=== PATIENT | female | born 1990 | race Caucasian/White ===

== ENCOUNTER 2024-12-01 17:45 | Emergency (ER) | payer OTHER, SELFPAY ==
[2024-12-01 17:52] VITALS: BP 144/84; PULSE 75; TEMP 36.8; O2SAT 97; BMI 52.3
--- OUTSIDE RECORDS SUMMARY | 2024-12-01 17:54 | XMS_ITS | Encounter Summary ---
Author Organization [facility] Address [address] [place] [address] Care Team Providers Care Mechanical Car Checker Name Role Phone Lily Grant MD, IBCLC Primary Care Provid er Reason for Referral * Consultation (Routine) - Authorized Specialty Diagnoses / Procedures Referred By Desi villagran Referred To Contact Nephrology Diagnoses Nephrocalcinosis Hypercalcinuria Procedures [facility]OUTPATIENT [facility] MDM 60 MINUTES Lily Grant MD, IBCLC [address] [place] [address] Phone: tel: fax: Waqas Cabrera MD [address] [facility] [place] [address] Phone: tel: fax: Referral ID Status Reason Start Date Expiration Date Visits Requested Visits Authorized [id number] Authorized Specialty Services Required 11/29/2024 05/28/2025 1 1 * Consultation (Routine) - Authorized Specialty Diagnoses / Procedures Referred By Desi villagran Referred To Contact Urology Diagnoses Nephrocalcinosis Hypercalcinuria Procedures [facility]OUTPATIENT [facility] MDM 60 MINUTES Lily Grant MD, IBCLC [address] [place] [address] Phone: tel: fax: Dacia Dan MD [address] [place] [address] Phone: tel: fax: Referral ID Status Reason Start Date Expiration Date Visits Requested Visits Authorized [id number] Authorized Specialty Services Required 11/29/2024 05/28/2025 1 1 Encounter Details Date Type Department Care Team (Latest Contact Info) Description 10/17/2024 Results Follow-Up [facility] [address] [place] [phone] Lily Grant MD, IBCLC [address] [place] [address] Comprehensive metabolic panel, Lipid panel, TSH, Additional followed-up results: 4 Social History Tobacco Use Types Packs/Day Years Used Date Smoking Tobacco: Never Smokeless Tobacco: Never AUDIT-C Answer Date Recorded Q1: How often do you have a drink containing alc ohol? Monthly or less 05/25/2024 Q2: How many drinks containi ng alcohol do you have on a typical day when you are drinking? 1 or 2 05/25/2024 Q3: How often do you have si x or more drinks on one occasion? Never 05/25/2024 PHQ-2 Answer Date Recorded Patient Health Questionnaire-2 Score 0 05/25/2024 Comments No Sex and Gender Information Value Date Recorded Sex Assigned at Not on file Legal Sex Female 6:50 PM EDT Gender Identity Not on file Sexual Orientation Not on file documented as of this encounter Plan of Treatment Upcoming Encounters Date Type Department Care Team (Late st Contact Info) Description 12/05/2024 8:40 AM EDT Office Visit [facility] [address] [place] [phone] Lily Grant MD, IBCLC [address] [place] [address] 05/31/2025 1:30 PM EST Office Visit [facility] [address] [place] [id number] Carlito Montelongo DO [address] [place] [address] Scheduled Orders Name Type Priority Associated Diagnoses Orde r Schedule Oxalate, urine, 24 hour Lab Routine Nephrocalcinosis Expected: 10/21/2024, Expires: 10/21/2025 Phosphorus, urine, timed Lab Routine Nephrocalcinosis Expected: 10/21/2024 (Approximate), Expires: 10/21/2025 Scheduled Referrals Name Type Priority Associated Diagnoses Order Schedule Ambulatory referral to Urology Outpatient Referral Routine Nephrocalcinosis Hypercalcinuria Expected: 11/29/2024 (Approximate), Expires: 06/01/2025 Ambulatory referral to Nephrology Outpatient Referral Routine Nephrocalcinosis Hypercalcinuria Expected: 11/29/2024 (Approximate), Expires: 06/01/2025 documented as of this encounter Procedures Procedure Name Priority Date/Time Associated Diagnosis Comments CALCIUM, 24 HOUR URINE (W/O CREATININE) Routine 11/23/2024 10:34 AM EDT Nephrocalcinosis CREATININE, 24 HOUR URINE Routine 11/23/2024 10:34 AM EDT Nephrocalcinosis CITRIC ACID, 24 HOUR URINE W/O CREATININE Routine 11/23/2024 10:34 AM EDT Nephrocalcinosis documented in this encounter Results * Citrate, urine, 24 hour (11/23/2024 10:34 AM EDT) Citric Acid, Urine 450 Undefined mg/L [facility] Comment:Total Volume: 1150 m L Citric Acid, U, 24hr 518 320 - 1,240 mg/24 hr [facility] Urine Urine specimen obtained by clean catch procedure / Unknown 11/23/2024 10:34 AM EDT 11/23/2024 Narrative [facility] - 11/29/2024 8:07 AM EDT Test(s) [id number] Acid, Urine was developed and its performance characteristics determined by [facility]. It has not been cleared or approved by the Food and Drug Administration. Performed at: [address] [id number] Digital Media Intern: Qi Dale MD, Phone: [phone] Lily Grant MD, IBCLC LAB URINE ORDERABLES Final Result Performing Organization Address City/[facility]/ZIP Co de Phone Number [facility] * Creatinine, urine, 24 hour (11/23/2024 10:34 AM EDT) Creat Ur 124.9 Not Estab. mg/dL [facility] Comment:Total Volume: 1150 m L CREATININE, UR 24HR 1,436 800 - 1,800 mg/24 hr [facility] Urine Urine specimen obtained by clean catch procedure / Unknown 11/23/2024 10:34 AM EDT 11/23/2024 Narrative [facility] - 11/29/2024 8:07 AM EDT Performed at: - [address] [id number] Digital Media Intern: Osvaldo Nathan PhD, Phone: [phone] Lily Grant MD, IBCLC LAB URINE ORDERABLES Final Result Performing Organization Address [facility] Co de Phone Number [facility] * Calcium, urine, 24 hour (11/23/2024 10:34 AM EDT) CALCIUM, URINE 16.3 Not Estab. mg/dL [facility] Comment:Total Volume: 1150 m L CALCIUM, URINE 24HR 187 0 - 320 mg/24 hr [facility] Urine Urine specimen obtained by clean catch procedure / Unknown 11/23/2024 10:34 AM EDT 11/23/2024 Narrative [facility] - 11/29/2024 8:07 AM EDT Performed at: - [address] [id number] Digital Media Intern: Osvaldo Nathan PhD, Phone: [phone] us Lily Grant MD, IBCLC LAB URINE ORDERABLES Final Result [facility] documented in this encounter Visit Diagnoses Diagnosis Nephrocalcinosis- Primary Other disorder of calcium metabolism Hypercalcinuria Unspecified disorders of calcium metabolism documented in this encounter Care Teams Mechanical Car Checker Relationship Specialty Start Date End Date Lily Grant MD, IBCLC [address] [place] [address] PCP - General Family Medicine 05/20/24 documented as of this encounter
--- OUTSIDE RECORDS SUMMARY | 2024-12-01 17:54 | XMS_ITS | Patient Health Record ---
Author Organization [facility] es Address [address] [place] [address] Care Team Providers Care Truck Driver Teamster Name Role Phone Jordan Levy Primary Care Provider [phone] Allergies Allergen (clinical drug ingredient) Drug/Non Drug Allergy documented on EMR Reaction Allergy Type Onset Date Status amoxicillin Amoxicillin hives Drug Allergy Act ngoc Reason For Referral No Information Medications Medication SIG (Take, Route, Frequency, Duration) Notes Start Date End Date Status Triamcinolone Acetonide 0.5 % 1 application sparingly to affected area Externally Twice a day; Duration: 1 month 03/13/2011 Not-Taking buPROPion HCl 150 MG 1 tablet every morn ing Orally Once a day; Duration: 30 day(s) 11/26/2011 Not-Taking buPROPion HCl 100 MG 1 tablet every morn ing Orally Once a day; Duration: 30 day(s) 10/29/2011 Not-Taking Pristiq 50 MG 1 tablet Orally Once a day; Duration: 30 day(s) 04/24/2011 Not-Taking Social History Depression Screening (PHQ-2): Question Answer Notes Little interest or pleasure in doing things No Feeling down depressed or hopeless No Section Notes: Apr 2011: denies tobacco, ETOH, or illegal drug use. Apr 2011: denies tobacco, ETOH, or illegal drug use. Apr 2011: denies tobacco, ETOH, or illegal drug use. rare ETOH Apr 2011: denies tobacco, ETOH, or illegal drug use. Apr 2011: denies tobacco, ETOH, or illegal drug use. Apr 2011: denies tobacco, ETOH, or illegal drug use. Apr 2011: denies tobacco, ETOH, or illegal drug use. Plan Of Treatment No Information Medical (General) History Medical History History ICD Code JEHOVA WITNESS NO BLOOD motion sickness UTI
--- OUTSIDE RECORDS SUMMARY | 2024-12-01 17:54 | XMS_ITS | Encounter Summary ---
Author Organization [facility] Address [address] [place] [address] Phone Care Team Providers Care Set Up Inspector Name Role Phone Unavailable Primary Care Provider Unavailabl e Encounter Details Date Type Department Care Team (Late st Contact Info) Description 06/17/2022 Orders Only DO [facility] [phone] Conversion, Onbase Social History Tobacco Use Types Packs/Day Years Used Date Smoking Tobacco: Never Assessed Comments Unknown Sex and Gender Information Value Date Recorded Sex Assigned at Not on file Legal Sex Female 3:55 AM EDT Gender Identity Not on file Sexual Orientation Not on file documented as of this encounter Plan of Treatment Scheduled Orders Name Type Priority Associated Diagnoses Orde r Schedule OUTSIDE LAB SCAN Lab Ordered: 06/17/2022 documented as of this encounter Visit Diagnoses Not on filedocumented in this encounter
--- OUTSIDE RECORDS SUMMARY | 2024-12-01 17:54 | XMS_ITS | Clinical Summary ---
Author Organization [facility] Address [address] [place] [address] Phone Care Team Providers Care Fuel House Attendant Name Role Phone Unavailable Primary Care Provider Unavailabl e Social History Tobacco Use Types Packs/Day Years Used Date Smoking Tobacco: Never Assessed Comments Unknown Sex and Gender Information Value Date Recorded Sex Assigned at Not on file Legal Sex Female 3:55 AM EDT Gender Identity Not on file Sexual Orientation Not on file Last Filed Vital Signs Vital Sign Reading Time Taken Comments Blood Pressure 130/90 08/25/2022 12:00 AM EDT Pulse - - Temperature - - Respiratory Rate - - Oxygen Saturation - - Inhaled Oxygen Concentration - - Weight 135 kg (296 lb 9.6 oz) 08/25/2022 12:00 A M EDT Height 157.5 cm (5' 2 ) 08/25/2022 12:00 AM EDT Body Mass Index 54.25 08/25/2022 12:00 AM EDT Plan of Treatment Health Maintenance Due Date Last Done Comments HIV Screening 1989 Lipid Panel 1989 Yearly Adult Physical 1989 MMR Vaccines (1 of 1 - Stand leeanne series) 1990 Hepatitis C Screening 12/10/2007 Hepatitis B Vaccines (1 of 3 - 19+ 3-dose series) 2008 Cervical Cancer Screening 2010 HPV/Cotest 2010 Pap Smear 2010 DTaP/Tdap/Td Vaccines (1 - Tdap) 12/10/2011 HPV Vaccines (1 - 3-dose sta ndard series) 2016 COVID-19 Vaccine (1 - 2023-2 5 season) 2023 Influenza Vaccine (#1) 2024 Zoster Vaccines (1 of 2) 12/10/2039 HIB Vaccines Aged Out No longer eligi ble based on patient's age to complete this topic Hepatitis A Vaccines Aged Out No long er eligible based on patient's age to complete this topic IPV Vaccines Aged Out No longer eligi ble based on patient's age to complete this topic Meningococcal Vaccine Aged Out No neelam luz marina eligible based on patient's age to complete this topic Pneumococcal Vaccine: Pediat rics and At-Risk Adult Patients Aged Out No longer kendrick gible based on patient's age to complete this topic Rotavirus Vaccines Aged Out No longer eligible based on patient's age to complete this topic Advance Directives For more information, please contact: [phone] (Available ) Documents on File Type Date Recorded Patient Lining Stitcher [employer] anation Healthcare Power of Atty 08/04/2022 [facility] Tank[facility]
--- OUTSIDE RECORDS SUMMARY | 2024-12-01 17:54 | XMS_ITS | Clinical Summary ---
Author Organization [facility] Address [address] [place] [address] Care Team Providers Care Groover And Turner Name Role Phone Lily Grant MD, IBCLC Primary Care Provid er Allergies Active Allergy Reactions Criticality Noted Date Comments Amoxicillin Hives 05/24/2024 Pineapple Shortness of breath High 04/13/2012 Medications No known medications Active Problems No known active problems Encounters Date Type Department Care Team Description 10/20/2024 3:45 PM EDT Ancillary Procedure [facility] [address] [place] [phone] Nausea and vomiting, unspecified vomiting type; LUQ pain 10/20/2024 Travel 10/17/2024 Results Follow-Up [address] [phone] Lily Grant MD, IBCLC Comprehensive metabolic panel, Lipid panel, TSH, Additional followed-up results: 4 10/12/2024 1:40 PM EDT Office Visit [address] [phone] Lily Grant MD, IBCLC Nausea and vomiting, unspecified vomiting type (Primary Dx); LUQ pain; Tachycardia; Encounter for lipid screening for cardiovascular disease 10/12/2024 Bamboo flowsheet [address] [phone] Lily Grant MD, IBCLC 10/12/2024 Travel from Last 3 Months Immunizations Immunization Administration Dates Next Due DTP 10/04/1991,06/28/1990,03/08/1990 DTaP, Unspecified 05/19/1994,11/26/1992 Hep B, Adolescent or Pediatric 11/14/2003,2001,10/11/1999 HiB, unspecified 10/04/1991,06/28/1990 Influenza, injectable, quadr ivalent, preservative free 01/05/2023,01/11/2019,01/22/2018 Influenza, seasonal, injecta ble, preservative free 01/11/2018 MMR 05/14/1998,10/04/1991 OPV 05/19/1994, 2,06/28/1990,1989 Tdap 04/26/2018 Tetanus toxoid, adsorbed 11/14/2003 Family History Medical History Relation Name Comments Breast cancer Maternal Grandmother Breast cancer Paternal Grandmother Relation Name Status Comments Brother Alive Father Alive Maternal Grandmother Mother Alive Paternal Grandmother Son Alive Social History Tobacco Use Types Packs/Day Years Used Date Smoking Tobacco: Never Smokeless Tobacco: Never Tobacco Cessation:Counseling Given: Not Answered AUDIT-C Answer Date Recorded Q1: How often [...] Sign Reading Time Taken Comments Blood Pressure 144/80 10/12/2024 1:35 PM EDT Pulse 60 10/12/2024 1:35 PM EDT Temperature 36.1 C (96.9 F) 10/12/2024 1:35 PM EDT Respiratory Rate - - Oxygen Saturation 98% 10/12/2024 1:35 PM EDT Inhaled Oxygen Concentration - - Weight 130 kg (286 lb 3.2 oz) 10/12/2024 1:35 PM EDT Height 157.5 cm (5' 2 ) 10/12/2024 1:35 PM EDT Body Mass Index 52.35 10/12/2024 1:35 PM EDT Plan of Treatment Upcoming Encounters Date Type Department Care Team (Late st Contact Info) Description 12/05/2024 8:40 AM EDT Office Visit [facility] [address] [place] [phone] Lily Grant MD, IBCLC [address] [place] [address] 05/31/2025 1:30 PM EST Office Visit [facility] [address] [place] [phone] Carlito Montelongo, [address] [place] [address] Health Maintenance Due Date Last Done Comments Influenza Vaccine (#1) 2024 , 01/11/2019, 01/22/2018, Additional history exists Cervical Cancer Screening Discontinued HPV/Cotest Discontinued 05/25/2024, 11/19/2021, 09/12 Pap Smear Discontinued Procedures Procedure Name Priority Date/Time Associated Diagnosis Comments CITRIC ACID, 24 HOUR URINE W/O CREATININE Routine 11/23/2024 10:34 AM EDT Nephrocalcinosis CREATININE, 24 HOUR URINE Routine 11/23/2024 10:34 AM EDT Nephrocalcinosis CALCIUM, 24 HOUR URINE (W/O CREATININE) Routine 11/23/2024 10:34 [address] EDT [address] ABDOMEN PELVIS W AND WO IV CONTRAST Routine 10/20/2024 4:00 PM EDT Nausea and vomiting, unspecified vomiting type LUQ pain CBC (INCLUDES DIFF/PLT) Routine 10/13/2024 10:34 AM EDT Nausea and vomiting, unspecified vomiting type LUQ pain Tachycardia LIPASE Routine 10/13/2024 10:34 AM EDT Nausea and vomiting, unspecified vomiting type LUQ pain T4, FREE Routine 10/13/2024 10:34 AM EDT Nausea and vomiting, unspecified vomiting type Tachycardia TSH Routine 10/13/2024 10:34 AM EDT Nausea and vomiting, unspecified vomiting type Tachycardia LIPID PANEL Routine 10/13/2024 10:34 AM EDT Encounter for lipid screening for cardiovascular disease COMPREHENSIVE METABOLIC PANEL Routine 10/13/2024 10:34 AM EDT Nausea and vomiting, unspecified vomiting type IGP,RFXAPTIMA HPV ALL,16/18,45 Routine 05/25/2024 12:00 AM EST Encounter for Papanicolaou smear of vagina from Last 3 Months or Most Recently Relevant to Health Maintenance Results * Calcium, urine, 24 hour (11/23/2024 10:34 AM EDT) CALCIUM, URINE 16.3 Not Estab. mg/dL [facility] Comment:Total Volume: 1150 m L CALCIUM, URINE 24HR 187 0 - 320 mg/24 hr [facility] Urine Urine specimen obtained by clean catch procedure / Unknown 11/23/2024 10:34 AM EDT 11/23/2024 Narrative [facility] - 11/29/2024 8:07 AM EDT Performed at: 01 - [facility] [id number] Valve Inspector: Osvaldo Nathan PhD, Phone: [phone] us Lily Grant MD, IBCLC LAB URINE ORDERABLES Final Result [facility] * Creatinine, urine, 24 hour (11/23/2024 10:34 AM EDT) Creat Ur 124.9 Not Estab. mg/dL [facility] Comment:Total Volume: 1150 m L CREATININE, UR 24HR 1,436 800 - 1,800 mg/24 hr [facility] Urine Urine specimen obtained by clean catch procedure / Unknown 11/23/2024 10:34 AM EDT 11/23/2024 Narrative [facility] - 11/29/2024 8:07 AM EDT Performed at: - [facility] [id number] Valve Inspector: Osvaldo Nathan PhD, Phone: [phone] Lily Grant MD, IBCLC LAB URINE ORDERABLES Final Result Performing Organization Address [facility] Co de Phone Number [facility] * Citrate, urine, 24 hour (11/23/2024 10:34 AM EDT) Citric Acid, Urine 450 Undefined mg/L [facility] Comment:Total Volume: 1150 m L Citric Acid, U, 24hr 518 320 - 1,240 mg/24 hr [facility] Urine Urine specimen obtained by clean catch procedure / Unknown 11/23/2024 10:34 AM EDT 11/23/2024 [facility] - 11/29/2024 8:07 AM EDT Test(s) 422617-[id number] Acid, Urine was developed and its performance characteristics determined by [facility]. It has not been cleared or approved by the Food and Drug Administration. Performed at: - [facility] [id number] Valve Inspector: Qi Dale MD, Phone: [phone] Lily Grant MD, IBCLC LAB URINE ORDERABLES Final Result Performing Organization Address [facility] Co de Phone Number [facility] * CT abdomen pelvis w and wo IV contrast (10/20/2024 4:00 PM EDT) Anatomical Region Laterality Modality Body, Pelvis, Abdomen Computed T omography 10/21/2024 9:36 AM EDT Impressions 10/21/2024 9:40 AM EDT Medullary nephrocalcinosis. No hydronephrosis. Other findings as discussed. ELECTRONICALLY SIGNED BY: Gil Horn MD Narrative 10/21/2024 9:40 AM EDT HISTORY: Left upper quadrant pain. Nausea and vomiting. TECHNIQUE: CT of the abdomen and pelvis was performed using standard technique without and with intravenous contrast, scanning from just above the dome of the diaphragm to the symphysis pubis. Including noncontrast phase and delayed images through the kidneys. Including sagittal and coronal reconstructions on all phases. All CT scans at this facility use dose modulation, iterative reconstruction, and/or weight based dosing when appropriate to reduce radiation dose to as low as reasonably achievable. COMPARISON: None. RESULT: Liver: Hepatic steatosis with some focal fatty sparing adjacent to the gallbladder. Biliary: Gallbladder unremarkable. No biliary ductal dilation. Pancreas: No mass or duct dilation. Spleen: No mass or splenomegaly. Adrenals: No mass. Kidneys: Increased density involving the medullary regions of both kidneys bilaterally, suggestive of medullary nephrocalcinosis. No hydronephrosis. Delayed phase imaging unremarkable. GI tract: No dilation or wall thickening. Appendix unremarkable. No evidence for diverticulitis. Lymph nodes: No abdominal or pelvic lymphadenopathy. Mesentery/Peritoneum/Retroperitoneum: No ascites or mass. Vasculature: The celiac axis and SMA are patent. The portal vein and branches, splenic vein, SMV, and hepatic veins are patent. No abdominal aortic or iliac artery aneurysm. Pelvis: No significant free fluid. Hysterectomy. Simple appearing adnexal cyst/follicles measuring around 4.5 cm on the right. Bones: No acute osseous findings. Degenerative changes. Soft tissues: Unremarkable. Lower thorax: Unremarkable. Procedure Note Gil Horn MD - 10/21/2024 HISTORY: Left upper quadrant pain. Nausea and vomiting. TECHNIQUE: CT of the abdomen and pelvis was performed using standardtechnique without and with intravenous contrast, scanning from just abovethe dome of the diaphragm to the symphysis pubis. Including noncontrastphase and delayed images through the kidneys. Including sagittal andcoronal reconstructions on all phases. All CT scans at this facility use dose modulation, iterativereconstruction, and/or weight based dosing when appropriate to reduceradiation dose to as low as reasonably achievable. COMPARISON: None. RESULT: Liver: Hepatic steatosis with some focal fatty sparing adjacent to thegallbladder. Biliary: Gallbladder unremarkable. No biliary ductal dilation. Pancreas: No mass or duct dilation. Spleen: No mass or splenomegaly. Adrenals: No mass. Kidneys: Increased density involving the medullary regions of both kidneysbilaterally, suggestive of medullary nephrocalcinosis. No hydronephrosis.Delayed phase imaging unremarkable. GI tract: No dilation or wall thickening. Appendix unremarkable. Noevidence for diverticulitis. Lymph nodes: No abdominal or pelvic lymphadenopathy. Mesentery/Peritoneum/Retroperitoneum: No ascites or mass. Vasculature: The celiac axis and SMA are patent. The portal vein andbranches, splenic vein, SMV, and hepatic veins are patent. No abdominalaortic or iliac artery aneurysm. Pelvis: No significant free fluid. Hysterectomy. Simple appearing adnexalcyst/follicles measuring around 4.5 cm on the right. Bones: No acute osseous findings. Degenerative changes. Soft tissues: Unremarkable. Lower thorax: Unremarkable. IMPRESSION: Medullary nephrocalcinosis. No hydronephrosis. Other findings as discussed. ELECTRONICALLY SIGNED BY: Gil Horn MD Lily Grant MD, IBCLC IMG CT PROCEDURES Fi nal Result * CBC and differential (10/13/2024 10:34 AM EDT) WBC 7.0 3.4 - 10.8 x10E3/uL [facility] RBC 4.45 3.77 - 5.28 x10E6/uL [facility] Hgb 13.0 11.1 - 15.9 g/dL [facility] Hct 38.1 34.0 - 46.6 % [facility] MCV 86 79 - 97 fL [facility] MCH 29.2 26.6 - 33.0 pg [facility] MCHC 34.1 31.5 - 35.7 g/dL [facility] RDW 13.4 11.7 - 15.4 % [facility] Platelets 281 150 - 450 x10E3/uL [facility] Neutrophils 64 Not Estab. % [facility] Lymphs 28 Not Estab. % [facility] Monocytes 7 Not Estab. % [facility] Eos 1 Not Estab. % [facility] Basos 0 Not Estab. % [facility] Neutrophils Abs 4.5 1.4 - 7.0 x10E3/uL [facility] Lymphs Abs 2.0 0.7 - 3.1 x10E3/uL [facility] MonocytesAbs 0.5 0.1 - 0.9 x10E3/uL [facility] Eos Abs 0.1 0.0 - 0.4 x10E3/uL [facility] Baso Abs 0.0 0.0 - 0.2 x10E3/uL [facility] Immature Granulocytes 0 Not Estab. % [facility] Immature Grans Abs 0.0 0.0 - 0.1 x10E3/uL [facility] Blood Venous blood specimen / Unknown 10/13/2024 10:34 AM EDT 10/13/2024 Narrative [facility] - 10/14/2024 6:07 AM EDT Performed at: [facility] [address], [place] [id number] Valve Inspector: Marc David MD, Phone: [phone] Lily Grant MD, [facility] LAB BLOOD ORDERABLES Final Result Performing Organization Address [facility] de Phone Number [facility] * TSH (10/13/2024 10:34 AM EDT) Pathologist [facility] TSH 2.050 0.450 - 4.500 uIU/mL [facility] Blood Venous blood specimen / Unknown 10/13/2024 10:34 AM EDT 10/13/2024 Narrative [facility] - 10/14/2024 6:07 AM EDT Performed at: - [facility] [address], [place] [id number] Valve Inspector: Marc David MD, Phone: [phone] Lily Grant MD, IBCLC LAB BLOOD ORDERABLES Final Result Performing Organization Address [facility] de Phone Number [facility] * T4, free (10/13/2024 10:34 AM EDT) T4Free(Direct) 0.94 0.82 - 1.77 ng/dL [facility] Blood Venous blood specimen / Unknown 10/13/2024 10:34 AM EDT 10/13/2024 Narrative [facility] - 10/14/2024 6:07 AM EDT Performed at: 01 - [facility] [address], [address] [place] [id number] Valve Inspector: Marc David MD, Phone: [phone] Lily Grant MD, IBCLC LAB BLOOD ORDERABLES Final Result Performing Organization Address [facility] Co de Phone Number [facility] * Lipase (10/13/2024 10:34 AM EDT) Pathologist [facility] LIPASE 20 14 - 72 U/L [facility] Blood Venous blood specimen / Unknown 10/13/2024 10:34 AM EDT 10/13/2024 Narrative [facility] - 10/14/2024 6:07 AM EDT Performed at: 01 - [facility] [address], [address] [place] [id number] Valve Inspector: Marc David MD, Phone: [phone] Lily Grant MD, IBCLC LAB BLOOD ORDERABLES Final Result [facility] * Lipid panel (10/13/2024 10:34 AM EDT) Cholesterol, Total 167 100 - 199 mg/dL [facility] Triglycerides 117 0 - 149 mg/dL [facility] HDL Cholesterol 48 >39 mg/dL [facility] VLDL Cholesterol Bola 21 5 - 40 mg/dL [facility] LDL Chol Calc (NIH) 98 0 - 99 mg/dL [facility] Blood Venous blood specimen / Unknown 10/13/2024 10:34 AM EDT 10/13/2024 Narrative [facility] - 10/14/2024 6:07 AM EDT Performed at: 02 - [facility] [id number] Valve Inspector: Osvaldo Nathan PhD, Phone: [phone] Lily Grant MD, IBCLC LAB BLOOD ORDERABLES Final Result Performing Organization Address City/[facility]/ZIP Co de Phone Number [facility] * Comprehensive metabolic panel (10/13/2024 10:34 AM EDT) [facility] Glucose 88 70 - 99 mg/dL [facility] BUN 15 6 - 20 mg/dL [facility] Creat 0.69 0.57 - 1.00 mg/dL [facility] EGFR 117 >59 mL/min/1.7 3 [facility] BUN/Creat Ratio 22 9 - 23 [facility] Sodium 140 134 - 144 mmol/L [facility] Potassium 4.3 3.5 - 5.2 mmol/L [facility] Chloride 106 96 - 106 mmol/L [facility] Carbon Dioxide 24 20 - 29 mmol/L [facility] Calcium 9.3 8.7 - 10.2 mg/dL [facility] Protein Total 6.4 6.0 - 8.5 g/dL [facility] Albumin 4.3 3.9 - 4.9 g/dL [facility] Globulin Total 2.1 1.5 - 4.5 g/dL [facility] Bili Total 0.4 0.0 - 1.2 mg/dL [facility] Alk Phosphatase 61 44 - 121 IU/L [facility] AST 16 15 - 59 IU/L [facility] ALT 23 0 - 35 IU/L [facility] Blood Venous blood specimen / Unknown 10/13/2024 10:34 AM EDT 10/13/2024 Narrative [facility] - 10/14/2024 6:07 AM EDT Performed at: [facility] - [facility] [address], [address], [place], [place] [id number] Valve Inspector: Marc David MD, Phone: [phone] Lily Grant MD, IBCLC LAB BLOOD ORDERABLES Final Result [facility] * IGP,rfxAptima HPV all,16/18,45 (05/25/2024 12:00 AM EST) Diagnosis: Comment [facility] Comment: NEGATIVE FOR INTRAEPITHELIAL LESION OR MALIGNANCY. THIS SPECIMEN WAS RESCREENED PART OF OUR WELFARE SPECIALIST PROGRAM. Specimen Adequacy: Comment [facility] Comment: Satisfactory for evaluation. No endocervical cells are present. This is consistent with a history of hysterectomy. Clinician Provided ICD10: Comment [facility] Comment:Z12.72 Performed By: Comment [facility] Comment:Marisela Kurtz, Cyto technologist ([facility]) QC Reviewed By: Comment [facility] Comment:Vivian Reed ytotechnologist ([facility]) Cyto Comments . [facility] Note: Comment [facility] Comment: The Pap smear is a screening test designed to aid in the detection of premalignant and malignant conditions of the uterine cervix. It is not a diagnostic procedure and should not be used as the sole means of detecting cervical cancer. Both false-positive and false-negative reports do occur. Test Methodology: Comment [facility] Comment: This liquid based ThinPrep(R) pap test was screened with the use of an image guided system. . Comment [facility] Comment: The HPV DNA reflex criteria were not met with this specimen result therefore, no HPV testing was performed. Swab Vaginal structure / Unknown 05/25/2024 05/26/2024 Comment:Vagina LMP: H BS 2 02 Narrative [facility] - 05/30/2024 10:07 AM EST Performed at: - [facility] [id number] Valve Inspector: Luba Hayes MD, Phone: [phone] Specimen Comment: [id number] Specimen Comment: No. of containers..01 ThinPrep Vial Carlito Montelongo DO LAB CYTOLOGY ORDERABLES Vicenta kirby Result [facility] from Last 3 Months or Most Recently Relevant to Health Maintenance Insurance [employer] Advance Directives Documents on File Type Date Recorded Patient Filling Separator Expl anation Power of Maintenance Mechanic Elevators 05/25/2024 8:43 AM Ryan Horton Care Teams Groover And Turner Relationship Specialty Start Date End Date Lily Grant MD, IBCLC [address], [place] [id number] PCP - General Family Medicine 05/20/24
--- NOTE | 2024-12-01 18:14 | CT_ITS ---
The [address] [address] Patient Name: REYES CARPENTER MRN: [id number] date: 1990 Sex: F Assigned Patient Location: ER Current Patient Location: ER Accession/Order Number: [id number] Exam Date: 12/01/2024 18:48 Report Date: 12/01/2024 19:33 At the request of: CRYSTAL AMARO Procedure: CT abdomen pelvis wo con CT Abdomen and Pelvis withoutcontrast TECHNIQUE: Axial imaging with 2-D reconstruction. . The CT exam was performed using one or more the following dose reduction techniques: Automated exposure control, adjustment of the MA and/or Kv according to patient size, or use of the iterative reconstruction technique. COMPARISON: None History: Bilateral flank pain for 2 months. Increased in severity LIMITATIONS: None LOWER THORAX Unremarkable LIVER: Hepatic steatosis GALLBLADDER: No gallbladder abnormality identified. BILE DUCTS: No dilatation SPLEEN: Unremarkable PANCREAS: Unremarkable ADRENAL GLANDS: Unremarkable KIDNEYS:Unremarkable AORTA: No abdominal aortic aneurysm identified. RETROPERITONEUM: No significant retroperitoneal abnormalities identified. MESENTERY:Unremarkable STOMACH:Unremarkable SMALL BOWEL: The small bowel loops are nondistended. APPENDIX: The appendix is normal. COLON: Unremarkable URINARY BLADDER: Urinary bladder is unremarkable. REPRODUCTIVE SYSTEM: The uterus is absent. PNEUMOPERITONEUM: None PERITONEAL FLUID:None BONY STRUCTURES: Unremarkable ABDOMINAL WALL: Unremarkable CT/CT abdomen pelvis wo con IMPRESSION: No acute findings. No nephrolithiasis or obstructive uropathy. No focal inflammatory changes. Impression dictated by: Vinay Angeles M.D. 12/01/2024 7:33 PM Dictation Location: [facility] Electronically authenticated by: [id number] Y Date: 12/01/2024 19:33
--- NOTE | 2024-12-01 18:15 | ED.GENADUL1 ---
HPI HPI - General Adult General Chief complaint: Abdominal Pain Stated complaint: LEFT SIDE PAIN Time Seen by Provider: 12/01/24 18:08 Source: patient Mode of arrival: walk-in Limitations: no limitations History of Present Illness HPI narrative: 33 year old female presents to the ED for bilateral flank pain, low abd pain, N/V. Onset was 2 months ago. It has recently gotten worse. It is worse at night. Reports emesis about once per week. Denies fever, diarrhea, dysuria, hematuria. States she has been evaluated by her pcp for the issue with no acute findings. Pt states she had a hysterectomy. Related Data Previous Rx's ?Medication ?Instructions ?Recorded hydrocodone 5 mg-acetaminophen 325 1 tab PO Q8H PRN pain 4 days #12 12/01/24 mg tablet tabs hydrocodone 5 mg-acetaminophen 325 1 tab PO Q8H PRN pain 4 days #12 12/01/24 mg tablet tabs methocarbamol 500 mg tablet 500 mg PO TID PRN pain, muscle 12/01/24 spasms #15 tabs methocarbamol 500 mg tablet 500 mg PO TID PRN pain, muscle 12/01/24 spasms #15 tabs prednisone 20 mg tablet 40 mg (2 x 20 mg) PO DAILY #10 tabs 12/01/24 prednisone 20 mg tablet 40 mg (2 x 20 mg) PO DAILY #10 tabs 12/01/24 Allergies Allergy/AdvReac Type Severity Reaction Status Date / Time amoxicillin Allergy Intermediate Hives Verified 12/01/24 17:52 Opioid HPI Opioid Management Most Recent Opioid Data: Last Pain Scale 6 Today, 19:57 Last MAR Pain Assessment Today, 19:56 Review of Systems ROS Constitutional Denies: fever or chills Cardiovascular Denies: chest pain Respiratory Denies: shortness of breath Gastrointestinal Reports: abdominal pain, nausea and vomiting; Denies: diarrhea Genitourinary Denies: painful urination, urinary frequency, urinary urgency, urinary incontinence or blood in urine Musculoskeletal Reports: back pain; Denies: neck pain Neurological Denies: headache, numbness in extremities or weakness in extremities PFSH PFSH Social History Little interest or pleasure in doing things: not at all Feeling down, depressed, or hopeless: not at all Exam Constitutional Vital Signs, click to edit/add: Last Vital Signs Temp 98.2 F 12/01/24 17:52 Pulse 75 12/01/24 17:52 Resp 14 12/01/24 17:52 BP 144/84 H 12/01/24 17:52 Pulse Ox 97 12/01/24 17:52 O2 Del Method Room Air 12/01/24 17:52 Common normals: no apparent distress and oriented x3 General appearance: cooperative HENMT Common normals: moist oral mucous membranes Eye Common normals: conjunctivae normal and no scleral icterus Neck & C-Spine Common normals: supple Chest Chest: symmetrical chest wall rise Respiratory Common normals: normal respiratory effort Effort & inspection: able to speak in complete sentences and symmetric chest movement Cardio Common normals: regular rate GI Common normals: Normal to inspection, nondistended, normoactive bowel sounds present, soft to palpation and non-tender Bladder/kidney exam: CVA tenderness bilateral Back & Pelvis Thoracic spine/upper back: paraspinal muscle tenderness; no thoracic spinal tenderness Lumbar spine/lower back: paraspinal muscle tenderness; no lumbar spinal tenderness Neuro Common normals: oriented x3, moves all extremities and no focal motor deficits Sensorium/orientation: awake and alert Speech: speech normal Course Vital Signs Vital signs: Vital Signs Temperature 98.2 F 12/01/24 17:52 Pulse Rate 75 12/01/24 17:52 Respiratory Rate 14 12/01/24 17:52 Blood Pressure 144/84 H 12/01/24 17:52 Pulse Oximetry 97 12/01/24 17:52 Oxygen Delivery Method Room Air 12/01/24 17:52 Temperature 98.2 F 12/01/24 17:52 Pulse Rate 75 12/01/24 17:52 Respiratory Rate 14 12/01/24 17:52 Blood Pressure 144/84 H 12/01/24 17:52 Pulse Oximetry 97 12/01/24 17:52 Oxygen Delivery Method Room Air 12/01/24 17:52 Medical Decision Making MDM Narrative Medical decision making narrative: CBC, CMP, lipase, and urinalysis were unremarkable. CT scan was negative for acute findings. Findings were discussed. OARRS was reviewed. Prescriptions were provided for prednisone, robaxin, and norco. Follow up with pcp for a recheck, further evaluation and treatment. Medical Records Medical records reviewed: Yes I reviewed the patient's medical records Lab Data Lab results reviewed: Yes I reviewed the patient's lab results Labs: Lab Results 12/01/24 12/01/24 Range/Units 18:02 18:27 WBC 8.6 (4.0-11.0) 10^3/uL RBC 4.90 (4.20-5.40) 10^6/uL Hgb 14.4 (12.0-16.0) g/dL Hct 41.7 (36.0-48.0) % MCV 85.1 (81.0-99.0) fL MCH 29.4 (26.7-34.0) pg MCHC 34.5 (29.9-35.2) g/dL RDW 12.9 (11.0-15.0) % Plt Count 337 (150-450) 10^3/uL MPV 9.8 (9.5-13.5) fL Neut % (Auto) 64.0 (43.0-75.0) % Lymph % (Auto) 26.0 (20.5-60.0) % [place] % (Auto) 8.3 (1.7-12.0) % Eos % (Auto) 0.7 L (0.9-7.0) % Baso % (Auto) 0.5 (0.2-2.0) % Neut # (Auto) 5.5 (1.4-6.5) 10^3/uL Lymph # (Auto) 2.2 (1.2-3.8) 10^3/uL [place] # (Auto) 0.7 (0.3-0.8) 10^3/uL Eos # (Auto) 0.1 (0.0-0.7) 10^3/uL Baso # (Auto) 0.0 (0.0-0.1) 10^3/uL Abs Immat Gran (auto) 0.04 H (0.00-0.03) 10^3/uL Imm/Tot Granulo (auto) 0.5 (0.0-0.5) % Sodium 142 (136-145) mmol/L Potassium 4.0 (3.5-5.1) mmol/L Chloride 105 (98-107) mmol/L Carbon Dioxide 28.0 (21.0-32.0) mmol/L Anion Gap 13.0 BUN 11.0 (7.0-18.0) mg/dL Creatinine 0.84 (0.55-1.02) mg/dL Est GFR ( Amer) >60 (>=60 mL/min/1.73m^2) Est GFR (Non-Af Amer) >60 (>=60 mL/min/1.73m^2) BUN/Creatinine Ratio 13.1 Glucose 98 (74-106) mg/dL Calcium 8.7 (8.5-10.1) mg/dL Total Bilirubin 0.3 (0.2-1.0) mg/dL AST 16 (15-37) U/L ALT 33 (14-59) U/L Alkaline Phosphatase 80 (46-116) U/L Total Protein 7.5 (6.4-8.2) g/dL Albumin 3.8 (3.4-5.0) g/dL Globulin 3.7 g/dL Albumin/Globulin Ratio 1.0 Lipase 28.0 (16.0-77.0) U/L Urine Color Yellow (YELLOW) Urine Clarity Clear (CLEAR) Urine pH 6.0 (5.0-9.0) Ur Specific [place] 1.025 (1.005-1.025) Urine Protein Negative (NEG/TRACE) mg/dL Urine Glucose (UA) Negative (NEGATIVE) mg/dL Urine Ketones Negative (NEGATIVE) mg/dL Urine Occult Blood Trace-i (NEGATIVE) Urine Nitrite Negative (NEGATIVE) Urine Bilirubin Negative (NEGATIVE) Urine Urobilinogen 0.2 (0.2-1.0) EU/dL Ur Leukocyte Esterase Negative (NEGATIVE) Urine RBC 0-2 (0-2) #/HPF Urine WBC 0-2 A (NONE SEEN) #/HPF Ur Squamous Epith Cells Few A (NONE/RARE) #/LPF Urine Crystals None seen (None Seen) #/HPF Urine Bacteria Trace A (NONE SEEN) #/HPF Urine Casts None seen (NONE SEEN) #/LPF Urine Mucus Small A (NONE SEEN) Ur Culture Indicated? No Imaging Data CT scan - abdomen: Attestation: I have reviewed the pertinent imaging results. Radiologist's impression: ITS Impressions Abdomen/Pelvis CT 12/01/24 18:14 IMPRESSION: No acute findings. No nephrolithiasis or obstructive uropathy. No focal inflammatory changes. Impression dictated by: Vinay Angeles M.D. 12/01/2024 7:33 PM Dictation Location: [facility] Electronically authenticated by: [id number] Y Date: 12/01/2024 19:33 Discharge Plan Discharge Chief Complaint: Abdominal Pain Clinical Impression: Abdominal pain, Back pain Patient Disposition: Home, Self-Care Time of Disposition Decision: 20:13 Condition: Good Mode of Transportation: Private Vehicle Prescriptions / Home Meds: New prednisone 20 mg tablet 40 mg PO DAILY Qty: 10 0RF methocarbamol 500 mg tablet 500 mg PO TID PRN (Reason: pain, muscle spasms) Qty: 15 0RF hydrocodone-acetaminophen 5-325 mg tablet 1 tab PO Q8H PRN (Reason: pain) 4 Days Qty: 12 0RF prednisone 20 mg tablet 40 mg PO DAILY Qty: 10 0RF methocarbamol 500 mg tablet 500 mg PO TID PRN (Reason: pain, muscle spasms) Qty: 15 0RF hydrocodone-acetaminophen 5-325 mg tablet 1 tab PO Q8H PRN (Reason: pain) 4 Days Qty: 12 0RF Print Language: Bur[place]ian Instructions: Abdominal Pain (ED), Back Pain (ED) Additional Instructions: Return to the ED for worsening symptoms. Referrals: Lily Grant MD [Primary Care Provider] - 1 week
[2024-12-01 18:20] LABS: Glucose Urine UA NEGATIVE (NEGATIVE)
[2024-12-01 18:53] LABS: Hematocrit 41.7 % (36.0-48.0); Hemoglobin 14.4 g/dL (12.0-16.0); Immature Granulocytes Abs Auto 0.04 10^3/uL (0.00-0.03); Immature Granulocytes Pct Auto 0.5 % (0.0-0.5); Lymphocytes Absolute Auto 2.2 10^3/uL (1.2-3.8); Mean Corpuscular HGB Conc 34.5 g/dL (29.9-35.2); Mean Corpuscular Hemoglobin 29.4 pg (26.7-34.0); Mean Corpuscular Volume 85.1 fL (81.0-99.0); Platelet Count 337 10^3/uL (150-450); Red Blood Count 4.90 10^6/uL (4.20-5.40); White Blood Count 8.6 10^3/uL (4.0-11.0)
[2024-12-01 18:55] LABS: Cast Seen? NONE SEEN #/LPF (NONE SEEN); Crystals Seen? None Seen #/HPF (None Seen); Urine Culture Indicated NO
[2024-12-01 19:03] LABS: Alanine Aminotransferase 33 U/L (14-59); Albumin Globulin Ratio 1.0; Albumin Level 3.8 g/dL (3.4-5.0); Alkaline Phosphatase 80 U/L (46-116); Anion Gap 13.0; Aspartate Amino Transferase 16 U/L (15-37); Blood Urea Nitrogen 11.0 mg/dL (7.0-18.0); Calcium 8.7 mg/dL (8.5-10.1); Carbon Dioxide 28.0 mmol/L (21.0-32.0); Chloride 105 mmol/L (98-107); Estimated GFR (African America >60 (>=60 mL/min/1.73m^2); Estimated GFR (Non-African Ame >60 (>=60 mL/min/1.73m^2); Globulin 3.7 g/dL; Glucose 98 mg/dL (74-106); Lipase 28.0 U/L (16.0-77.0); Potassium 4.0 mmol/L (3.5-5.1); Sodium 142 mmol/L (136-145); Total Protein 7.5 g/dL (6.4-8.2)
[2024-12-01] MEDS: MORPHINE SULFATE 2 MG/ML SYRINGE IV (19:56)
[2024-12-01] MEDS: ORPHENADRINE 60 MG/2 ML VIAL IV (19:57)
[2024-12-01] MEDS: KETOROLAC TROMETHAMINE 30 MG/ML VIAL IVP (19:57)
[2024-12-01 20:50] VITALS: BP 129/80; PULSE 80; O2SAT 96
== END 2024-12-01 20:53 | disposition home or self-care (01) ==
PROVIDERS: Nurse Practitioner Family; Emergency Provider Emergency Medicine; PCP Student in an Organized Health Care Education/Training Program
DX: R10.9 Unspecified abdominal pain (principal); M54.9 Dorsalgia, unspecified; Z90.710 Acquired absence of both cervix and uterus
CPT/HCPCS: 36415; 74176; 80053; 81001; 83690; 85025; 96374; 96375; 99285; J1885; J2270; J2360; J2405